=== PATIENT | female | born 1965 | race American Indian/Alaskan Native ===

== ENCOUNTER 2021-04-27 01:45 | Emergency (ER) | payer MEDICAID, OTHER ==
--- NOTE | 2021-04-27 02:07 | EDM.PDOC ---
"<Daniel Loo M - Last Filed: 04/27/21 03:44> ED HPI GENERAL MEDICAL PROBLEM - General Chief Complaint: Neuro Symptoms/Deficits Time Seen by Provider: 04/27/21 01:55 Source of Information: Reports: EMS History Limitations: Reports: Altered Mental Status - History of Present Illness INITIAL COMMENTS - FREE TEXT/NARRATIVE: This 56 yo female patient was brought to the ED by [facility] due to not acting normally. The patient's family reports the patient has been sick for the past 2 weeks and is not vomiting blood and having bloody stools. The patient would respond to painful stimuli and would open her eyes to her name. There were no family members that presented to the ED for any further information. Onset: Unknown/Unsure Duration: Week(s):, Constant, Getting Worse Location: Reports: Other Quality: Reports: Other Severity: Severe Improves with: Reports: None Worsens with: Reports: None Context: Reports: Other - Related Data Allergies Allergy/AdvReac Type Severity Reaction Status Date / Time No Known Allergies Allergy Verified 09/12/15 12:35 Home Meds: Home Meds . [No Known Home Meds] 09/12/15 [History] Past Medical History - Past Surgical History Female Surgical History: Reports: Section, Other (See Below) ED ROS GENERAL - Review of Systems Review Of Systems: Comprehensive ROS is negative, except as noted in HPI. ED EXAM, GENERAL - Physical Exam Exam: See Below Exam Limited By: Altered Mental Status General Appearance: Alert, Moderate Distress Eye Exam: Bilateral Eye: EOMI, Normal Inspection, PERRL Ears: Normal External Exam, Normal Canal, Hearing Grossly Normal, Normal TMs Nose: Normal Inspection, Normal Mucosa, No Blood Throat/Mouth: Other (dark substance (consistant with families reports of the patient vomiting blood).) Head: Atraumatic, Normocephalic Neck: Normal Inspection, Supple, Non-Tender, Full Range of Motion Respiratory/Chest: No Respiratory Distress, Lungs Clear, Normal Breath Sounds, No Accessory Muscle Use, Chest Non-Tender Cardiovascular: Normal Peripheral Pulses, Regular Rate, Rhythm, No Edema, No Gallop, No JVD, No Murmur, No Rub GI/Abdominal: Normal Bowel Sounds, No Organomegaly, No Distention, No Abnormal Bruit, No Mass, Pelvis Stable, Tender, Other (When palpating the patient's abdomen the paitent rolled away with any touch. ) Rectal (Female) Exam: Normal Rectal Tone, Other (The patient was moving away for the rectal examination. The patient had charcoal appearance to stool after rectal exam. ) Back Exam: Normal Inspection, Full Range of Motion, NT Extremities: Normal Inspection, Normal Range of Motion, Non-Tender, Normal Capillary Refill, No Pedal Edema Neurological: Inattentive, Disoriented Skin Exam: Warm, Dry, Intact, No Rash, Pallor Lymphatic: No Adenopathy #1 Interpretation EKG Date: 04/27/21 Time: 02:14 Rhythm: Other (Sinus Tach) Rate (Beats/Min): 102 Perry: Normal P-Wave: Present QRS: Normal ST-T: Normal QT: Normal Comparison: NA - No Prior EKG Course - Re-Assessments/Exams Free Text/Narrative Re-Assessment/Exam: 04/27/21 03:44 Calls were placed to transfer this patient to: [facility] @ 252 placed on waiting list [facility] @ 253 placed on list [facility] @ 256 placed on list [facility] @ 259 no beds available [place] @ 302 no beds [facility] @ 304 no beds [place] @ 339 no capability to take care of this patient [facility] @ [phone] at capacity [place] [facility] @ [phone] no rooms Departure - Departure Disposition: DC/Tfer to [facility] 02 Clinical Impression: Severe anemia, Methamphetamine intoxication GI bleed Qualifiers: GI bleed type/associated pathology: gastrointestinal hemorrhage with hematemesis Qualified Code(s): K92.0 - Hematemesis Altered mental status Qualifiers: Altered mental status type: disorientation Qualified Code(s): R41.0 - Disorientation, unspecified Pneumonia Qualifiers: Pneumonia type: aspiration pneumonia Aspiration pneumonia type: due to vomit Laterality: bilateral Lung location: unspecified part of lung Qualified Code(s): J69.0 - Pneumonitis due to inhalation of food and vomit - Discharge Information Forms: ED Department Discharge, Interfacility Transfer SARAH <Samuel Griffin - Last Filed: 04/27/21 08:58> ED HPI GENERAL MEDICAL PROBLEM - General Source of Information: Reports: Family (sister), Provider (Daniel PINA), RN, RN Notes Reviewed History Limitations: Reports: Altered Mental Status, Uncooperative - History of Present Illness INITIAL COMMENTS - FREE TEXT/NARRATIVE: I assumed care of the pt from Reyna PINA at 0700HRS due to shift change. The pt arrive hereto the ER from her sister's house by [facility] shortly after midnight with altered mental status and GI bleed. The pt has been unable to provide any information or history. The pt's sister has called several times and reports the pt became ill about 2 weeks ago, but the initial symptoms are unclear. Apparently about 3 days ago the pt began have blood and dark bloody emesis, coughing up mucus, and dark blood stool with increasing confusion. Unknown if any fevers. Past medical Hx is unknown. Daniel PINA has been calling looking for a higher level of care to transfer the pt to since 0200HRS. He has called 9 tertiary level hospitals in [facility] and adjacent states only to find no beds available anywhere. Social & Family History - Family History Family Medical History: Unobtainable - Living Situation & Occupation Living situation: Reports: with Family Occupation: Unemployed ED ROS GENERAL - Review of Systems Review Of Systems: Unable To Obtain Reason Not Obtained: altered mental status ED EXAM, GENERAL - Physical Exam Exam: See Below Exam Limited By: Altered Mental Status General Appearance: Alert, Other (Uncooperative, confused, but in no distress) Eye Exam: Bilateral Eye: EOMI, Normal Inspection, PERRL Nose: Normal Inspection, No Blood Throat/Mouth: Other Head: Atraumatic, Normocephalic Neck: Normal Inspection Respiratory/Chest: No Respiratory Distress, Lungs Clear Cardiovascular: Regular Rate, Rhythm, No Edema GI/Abdominal: Normal Bowel Sounds, Soft, Non-Tender, No Distention Extremities: Normal Inspection Neurological: Alert, Confused, Disoriented Skin Exam: Warm, Dry, Intact, No Rash, Pallor. No: Ecchymosis, Jaundice, Petechiae Course - Vital Signs Last Recorded V/S: Last Vital Signs Temp 97.7 F 04/27/21 08:50 Pulse 80 04/27/21 08:50 Resp 18 04/27/21 08:50 BP 80/43 L 04/27/21 08:50 Pulse Ox 100 04/27/21 06:32 - Orders/Labs/Meds Orders: Active Orders 24 hr Category Date Time Status Insert Urinary Catheter [OM.PC] Stat Care 04/27/21 07:12 Ordered Urinary Catheter Assessment [RC] ASDIRECTED Care 04/27/21 07:13 Active CULTURE BLOOD [BC] Stat Lab 04/27/21 02:05 Results CULTURE URINE [RM] Stat Lab 04/27/21 07:43 Received RED BLOOD CELLS LP [BBK] Stat Lab 04/27/21 02:05 Results TYPE AND SCREEN [BBK] Stat Lab 04/27/21 02:05 Results Octreotide [SandoSTATIN] 100 mcg Med 04/27/21 07:15 Active Sodium Chloride 0.9% [Normal Saline] 99 ml IV Q10H Pantoprazole [ProTONIX IV] 40 mg Med 04/27/21 07:00 Active Sodium Chloride 0.9% [Normal Saline] 100 ml IV .CONTINUOS Piperacillin/Tazobactam [Zosyn] 3.375 gm Med 04/27/21 08:53 Ordered Sodium Chloride 0.9% [Normal Saline AdvBag] 100 ml IV ONETIME Sodium Chloride 0.9% [Normal Saline] 1,000 ml Med 04/27/21 07:30 Active IV ASDIRECTED Transfuse Red Blood Cells [COMM] Stat Oth 04/27/21 08:20 Ordered Medication Orders Pantoprazole Sodium 40 mg/ (Sodium Chloride) 100 mls @ 20 mls/hr IV .CONTINUOS LEONARDO Last Admin: 04/27/21 07:25 Dose: 20 mls/hr Documented by: HERNAN Octreotide Acetate 100 mcg/ (Sodium Chloride) 100 mls @ 50 mls/hr IV Q10H LEONARDO Last Admin: 04/27/21 08:28 Dose: 50 mls/hr Documented by: HERNAN Sodium Chloride (Normal Saline) 1,000 mls @ 150 mls/hr IV ASDIRECTED LEONARDO Last Admin: 04/27/21 07:59 Dose: 150 mls/hr Documented by: HERNAN Labs: Laboratory Tests 04/27/21 04/27/21 04/27/21 Range/Units 02:00 02:05 02:05 WBC 11.7 H (5.0-10.0) 10^3/uL RBC 1.55 L (4.2-5.4) 10^6/uL Hgb 5.2 L* D (12.0-16.0) g/dL Hct 16.4 L* (37.0-47.0) % MCV 105.8 H D (80-100) fL MCH 33.5 (27.0-34.0) pg MCHC 31.7 L (33.0-35.0) g/dL Plt Count 190 D (150-450) 10^3/uL Neut % (Auto) 78.4 H (42.2-75.2) % Lymph % (Auto) 14.5 L (20.5-50.1) % Ware % (Auto) 6.5 (2-8) % Eos % (Auto) 0.3 L (1.0-3.0) % Baso % (Auto) 0.3 (0.0-1.0) % Add Manual Diff Yes Neutrophils % (Manual) 70 (42-75) % Band Neutrophils % 17 % Lymphocytes % (Manual) 8 L (20-50) % Atypical Lymphs % 0 % Monocytes % (Manual) 4 (2-8) % Eosinophils % (Manual) 1 (1-3) % Hypochromasia 2+ moderate Anisocytosis 1+ slight PT 14.4 H (9.0-12.0) SEC INR 1.4 H (0.9-1.2) D-Dimer, Quantitative 164 (0-400) ng/mL Sodium (136-145) mmol/L Potassium (3.5-5.1) mmol/L Chloride (98-107) mmol/L Carbon Dioxide (21-32) mmol/L Anion Gap (7-13) mEq/L BUN (7-18) mg/dL Creatinine (0.55-1.02) mg/dL Est Cr Clr Drug Dosing mL/min Estimated GFR (MDRD) BUN/Creatinine Ratio (No establ ref range) Glucose (70-99) mg/dL Lactic Acid (0.4-2.0) mmol/L Calcium (8.5-10.1) mg/dL Magnesium (1.8-2.4) mg/dL Total Bilirubin (0.2-1.0) mg/dL AST (15-37) U/L ALT (14-59) U/L Alkaline Phosphatase (46-116) U/L Ammonia (11-32) umol/L Troponin I High Sens (<=51) pg/mL Total Protein (6.4-8.2) g/dL Albumin (3.4-5.0) g/dL Globulin Albumin/Globulin Ratio Amylase (25-115) U/L Urine Color (YELLOW) Urine Appearance (CLEAR) Urine pH (5.0-9.0) Ur Specific [place] (1.005-1.030) Urine Protein (NEGATIVE) Urine Glucose (UA) (NEGATIVE) Urine Ketones (NEGATIVE) Urine Occult Blood (NEGATIVE) Urine Nitrite (NEGATIVE) Urine Bilirubin (NEGATIVE) Urine Urobilinogen (0.2-1.0) mg/dL Ur Leukocyte Esterase (NEGATIVE) Urine RBC (0-5) /HPF Urine WBC (0-5/HPF) /HPF Ur Epithelial Cells (NOT SEEN) /HPF Amorphous Sediment (NOT SEEN) /HPF Urine Bacteria (0-FEW/HPF) /HPF Urine Mucus (NOT SEEN) /LPF Salicylates (2.8-20(Therapeutic)) mg/dL Urine Opiates Screen (NEGATIVE) Ur Oxycodone Screen (NEGATIVE) Urine Methadone Screen (NEGATIVE) Acetaminophen (10-30 (Therapeutic)) ug/mL Ur Barbiturates Screen (NEGATIVE) U Tricyclic Antidepress (NEGATIVE) Ur Phencyclidine Scrn (NEGATIVE) Ur Amphetamine Screen (NEGATIVE) U Methamphetamines Scrn (NEGATIVE) Urine MDMA Screen (NEGATIVE) U Benzodiazepines Scrn (NEGATIVE) Urine Cocaine Screen (NEGATIVE) U Marijuana (THC) Screen (NEGATIVE) Ethyl Alcohol (0) mg/dL Influenza Type A RNA Negative (NEGATIVE) Influenza Type B RNA Negative (NEGATIVE) SARS-CoV-2 RNA (MA[place]) Negative (NEGATIVE) Blood Type Gel Antibody Screen Crossmatch 04/27/21 04/27/21 04/27/21 Range/Units 02:05 02:05 02:05 WBC (5.0-10.0) 10^3/uL RBC (4.2-5.4) 10^6/uL Hgb (12.0-16.0) g/dL Hct (37.0-47.0) % MCV (80-100) fL MCH (27.0-34.0) pg MCHC (33.0-35.0) g/dL Plt Count (150-450) 10^3/uL Neut % (Auto) (42.2-75.2) % Lymph % (Auto) (20.5-50.1) % Ware % (Auto) (2-8) % Eos % (Auto) (1.0-3.0) % Baso % (Auto) (0.0-1.0) % Add Manual Diff Neutrophils % (Manual) (42-75) % Band Neutrophils % % Lymphocytes % (Manual) (20-50) % Atypical Lymphs % % Monocytes % (Manual) (2-8) % Eosinophils % (Manual) (1-3) % Hypochromasia Anisocytosis PT (9.0-12.0) SEC INR (0.9-1.2) D-Dimer, Quantitative (0-400) ng/mL Sodium 141 (136-145) mmol/L Potassium 4.4 (3.5-5.1) mmol/L Chloride 109 H (98-107) mmol/L Carbon Dioxide 19 L (21-32) mmol/L Anion Gap 17.4 H (7-13) mEq/L BUN 53 H (7-18) mg/dL Creatinine 1.44 H (0.55-1.02) mg/dL Est Cr Clr Drug Dosing 36.94 mL/min Estimated GFR (MDRD) 38 BUN/Creatinine Ratio 36.8 (No establ ref range) Glucose 125 H (70-99) mg/dL Lactic Acid 4.5 H* (0.4-2.0) mmol/L Calcium 7.3 L (8.5-10.1) mg/dL Magnesium 1.7 L (1.8-2.4) mg/dL Total Bilirubin 1.4 H (0.2-1.0) mg/dL AST 71 H (15-37) U/L ALT 30 (14-59) U/L Alkaline Phosphatase 88 (46-116) U/L Ammonia 19 (11-32) umol/L Troponin I High Sens 8 (<=51) pg/mL Total Protein 5.3 L (6.4-8.2) g/dL Albumin 1.7 L (3.4-5.0) g/dL Globulin 3.6 Albumin/Globulin Ratio 0.47 Amylase 62 (25-115) U/L Urine Color (YELLOW) Urine Appearance (CLEAR) Urine pH (5.0-9.0) Ur Specific [place] (1.005-1.030) Urine Protein (NEGATIVE) Urine Glucose (UA) (NEGATIVE) Urine Ketones (NEGATIVE) Urine Occult Blood (NEGATIVE) Urine Nitrite (NEGATIVE) Urine Bilirubin (NEGATIVE) Urine Urobilinogen (0.2-1.0) mg/dL Ur Leukocyte Esterase (NEGATIVE) Urine RBC (0-5) /HPF Urine WBC (0-5/HPF) /HPF Ur Epithelial Cells (NOT SEEN) /HPF Amorphous Sediment (NOT SEEN) /HPF Urine Bacteria (0-FEW/HPF) /HPF Urine Mucus (NOT SEEN) /LPF Salicylates (2.8-20(Therapeutic)) mg/dL Urine Opiates Screen (NEGATIVE) Ur Oxycodone Screen (NEGATIVE) Urine Methadone Screen (NEGATIVE) Acetaminophen 3 L (10-30 (Therapeutic)) ug/mL Ur Barbiturates Screen (NEGATIVE) U Tricyclic Antidepress (NEGATIVE) Ur Phencyclidine Scrn (NEGATIVE) Ur Amphetamine Screen (NEGATIVE) U Methamphetamines Scrn (NEGATIVE) Urine MDMA Screen (NEGATIVE) U Benzodiazepines Scrn (NEGATIVE) Urine Cocaine Screen (NEGATIVE) U Marijuana (THC) Screen (NEGATIVE) Ethyl Alcohol < 3 (0) mg/dL Influenza Type A RNA (NEGATIVE) Influenza Type B RNA (NEGATIVE) SARS-CoV-2 RNA ([place]) (NEGATIVE) Blood Type Gel Antibody Screen Crossmatch 04/27/21 04/27/21 04/27/21 Range/Units 02:05 02:05 05:25 WBC (5.0-10.0) 10^3/uL RBC (4.2-5.4) 10^6/uL Hgb (12.0-16.0) g/dL Hct (37.0-47.0) % MCV (80-100) fL MCH (27.0-34.0) pg MCHC (33.0-35.0) g/dL Plt Count (150-450) 10^3/uL Neut % (Auto) (42.2-75.2) % Lymph % (Auto) (20.5-50.1) % Ware % (Auto) (2-8) % Eos % (Auto) (1.0-3.0) % Baso % (Auto) (0.0-1.0) % Add Manual Diff Neutrophils % (Manual) (42-75) % Band Neutrophils % % Lymphocytes % (Manual) (20-50) % Atypical Lymphs % % Monocytes % (Manual) (2-8) % Eosinophils % (Manual) (1-3) % Hypochromasia Anisocytosis PT (9.0-12.0) SEC INR (0.9-1.2) D-Dimer, Quantitative (0-400) ng/mL Sodium (136-145) mmol/L Potassium (3.5-5.1) mmol/L Chloride (98-107) mmol/L Carbon Dioxide (21-32) mmol/L Anion Gap (7-13) mEq/L BUN (7-18) mg/dL Creatinine (0.55-1.02) mg/dL Est Cr Clr Drug Dosing mL/min Estimated GFR (MDRD) BUN/Creatinine Ratio (No establ ref range) Glucose (70-99) mg/dL Lactic Acid 2.7 H* (0.4-2.0) mmol/L Calcium (8.5-10.1) mg/dL Magnesium (1.8-2.4) mg/dL Total Bilirubin (0.2-1.0) mg/dL AST (15-37) U/L ALT (14-59) U/L Alkaline Phosphatase (46-116) U/L Ammonia (11-32) umol/L Troponin I High Sens (<=51) pg/mL Total Protein (6.4-8.2) g/dL Albumin (3.4-5.0) g/dL Globulin Albumin/Globulin Ratio Amylase (25-115) U/L Urine Color (YELLOW) Urine Appearance (CLEAR) Urine pH (5.0-9.0) Ur Specific [place] (1.005-1.030) Urine Protein (NEGATIVE) Urine Glucose (UA) (NEGATIVE) Urine Ketones (NEGATIVE) Urine Occult Blood (NEGATIVE) Urine Nitrite (NEGATIVE) Urine Bilirubin (NEGATIVE) Urine Urobilinogen (0.2-1.0) mg/dL Ur Leukocyte Esterase (NEGATIVE) Urine RBC (0-5) /HPF Urine WBC (0-5/HPF) /HPF Ur Epithelial Cells (NOT SEEN) /HPF Amorphous Sediment (NOT SEEN) /HPF Urine Bacteria (0-FEW/HPF) /HPF Urine Mucus (NOT SEEN) /LPF Salicylates < 2.8 L (2.8-20(Therapeutic)) mg/dL Urine Opiates Screen (NEGATIVE) Ur Oxycodone Screen (NEGATIVE) Urine Methadone Screen (NEGATIVE) Acetaminophen (10-30 (Therapeutic)) ug/mL Ur Barbiturates Screen (NEGATIVE) U Tricyclic Antidepress (NEGATIVE) Ur Phencyclidine Scrn (NEGATIVE) Ur Amphetamine Screen (NEGATIVE) U Methamphetamines Scrn (NEGATIVE) Urine MDMA Screen (NEGATIVE) U Benzodiazepines Scrn (NEGATIVE) Urine Cocaine Screen (NEGATIVE) U Marijuana (THC) Screen (NEGATIVE) Ethyl Alcohol (0) mg/dL Influenza Type A RNA (NEGATIVE) Influenza Type B RNA (NEGATIVE) SARS-CoV-2 RNA ([place]) (NEGATIVE) Blood Type O POSITIVE Gel Antibody Screen Negative Crossmatch See Detail 04/27/21 04/27/21 04/27/21 Range/Units 06:30 06:30 07:43 WBC 9.8 (5.0-10.0) 10^3/uL RBC 2.53 L (4.2-5.4) 10^6/uL Hgb 7.8 L D (12.0-16.0) g/dL Hct 24.1 L (37.0-47.0) % MCV 95.3 D (80-100) fL MCH 30.8 (27.0-34.0) pg MCHC 32.4 L (33.0-35.0) g/dL Plt Count 128 L (150-450) 10^3/uL Neut % (Auto) 73.0 (42.2-75.2) % Lymph % (Auto) 17.4 L (20.5-50.1) % Ware % (Auto) 8.9 H (2-8) % Eos % (Auto) 0.4 L (1.0-3.0) % Baso % (Auto) 0.3 (0.0-1.0) % Add Manual Diff Neutrophils % (Manual) (42-75) % Band Neutrophils % % Lymphocytes % (Manual) (20-50) % Atypical Lymphs % % Monocytes % (Manual) (2-8) % Eosinophils % (Manual) (1-3) % Hypochromasia Anisocytosis PT (9.0-12.0) SEC INR (0.9-1.2) D-Dimer, Quantitative (0-400) ng/mL Sodium 141 (136-145) mmol/L Potassium 4.4 (3.5-5.1) mmol/L Chloride 109 H (98-107) mmol/L Carbon Dioxide 19 L (21-32) mmol/L Anion Gap 17.4 H (7-13) mEq/L BUN 49 H (7-18) mg/dL Creatinine 1.18 H (0.55-1.02) mg/dL Est Cr Clr Drug Dosing 45.08 mL/min Estimated GFR (MDRD) 48 BUN/Creatinine Ratio 41.5 (No establ ref range) Glucose 116 H (70-99) mg/dL Lactic Acid (0.4-2.0) mmol/L Calcium 7.2 L (8.5-10.1) mg/dL Magnesium (1.8-2.4) mg/dL Total Bilirubin 1.6 H (0.2-1.0) mg/dL AST 78 H (15-37) U/L ALT 27 (14-59) U/L Alkaline Phosphatase 91 (46-116) U/L Ammonia (11-32) umol/L Troponin I High Sens (<=51) pg/mL Total Protein 5.6 L (6.4-8.2) g/dL Albumin 1.8 L (3.4-5.0) g/dL Globulin 3.8 Albumin/Globulin Ratio 0.47 Amylase (25-115) U/L Urine Color Yellow (YELLOW) Urine Appearance Slightly cloudy (CLEAR) Urine pH 6.0 (5.0-9.0) Ur Specific [place] 1.025 (1.005-1.030) Urine Protein Negative (NEGATIVE) Urine Glucose (UA) Negative (NEGATIVE) Urine Ketones Negative (NEGATIVE) Urine Occult Blood Trace-intact H (NEGATIVE) Urine Nitrite Positive H (NEGATIVE) Urine Bilirubin Negative (NEGATIVE) Urine Urobilinogen 1.0 (0.2-1.0) mg/dL Ur Leukocyte Esterase Negative (NEGATIVE) Urine RBC 0-5 (0-5) /HPF Urine WBC 0-5 (0-5/HPF) /HPF Ur Epithelial Cells Few (NOT SEEN) /HPF Amorphous Sediment Rare (NOT SEEN) /HPF Urine Bacteria Many H (0-FEW/HPF) /HPF Urine Mucus Few H (NOT SEEN) /LPF Salicylates (2.8-20(Therapeutic)) mg/dL Urine Opiates Screen (NEGATIVE) Ur Oxycodone Screen (NEGATIVE) Urine Methadone Screen (NEGATIVE) Acetaminophen (10-30 (Therapeutic)) ug/mL Ur Barbiturates Screen (NEGATIVE) U Tricyclic Antidepress (NEGATIVE) Ur Phencyclidine Scrn (NEGATIVE) Ur Amphetamine Screen (NEGATIVE) U Methamphetamines Scrn (NEGATIVE) Urine MDMA Screen (NEGATIVE) U Benzodiazepines Scrn (NEGATIVE) Urine Cocaine Screen (NEGATIVE) U Marijuana (THC) Screen (NEGATIVE) Ethyl Alcohol (0) mg/dL Influenza Type A RNA (NEGATIVE) Influenza Type B RNA (NEGATIVE) SARS-CoV-2 RNA ([place]) (NEGATIVE) Blood Type Gel Antibody Screen Crossmatch 04/27/21 Range/Units 07:43 WBC (5.0-10.0) 10^3/uL RBC (4.2-5.4) 10^6/uL Hgb (12.0-16.0) g/dL Hct (37.0-47.0) % MCV (80-100) fL MCH (27.0-34.0) pg MCHC (33.0-35.0) g/dL Plt Count (150-450) 10^3/uL Neut % (Auto) (42.2-75.2) % Lymph % (Auto) (20.5-50.1) % Ware % (Auto) (2-8) % Eos % (Auto) (1.0-3.0) % Baso % (Auto) (0.0-1.0) % Add Manual Diff Neutrophils % (Manual) (42-75) % Band Neutrophils % % Lymphocytes % (Manual) (20-50) % Atypical Lymphs % % Monocytes % (Manual) (2-8) % Eosinophils % (Manual) (1-3) % Hypochromasia Anisocytosis PT (9.0-12.0) SEC INR (0.9-1.2) D-Dimer, Quantitative (0-400) ng/mL Sodium (136-145) mmol/L Potassium (3.5-5.1) mmol/L Chloride (98-107) mmol/L Carbon Dioxide (21-32) mmol/L Anion Gap (7-13) mEq/L BUN (7-18) mg/dL Creatinine (0.55-1.02) mg/dL Est Cr Clr Drug Dosing mL/min Estimated GFR (MDRD) BUN/Creatinine Ratio (No establ ref range) Glucose (70-99) mg/dL Lactic Acid (0.4-2.0) mmol/L Calcium (8.5-10.1) mg/dL Magnesium (1.8-2.4) mg/dL Total Bilirubin (0.2-1.0) mg/dL AST (15-37) U/L ALT (14-59) U/L Alkaline Phosphatase (46-116) U/L Ammonia (11-32) umol/L Troponin I High Sens (<=51) pg/mL Total Protein (6.4-8.2) g/dL Albumin (3.4-5.0) g/dL Globulin Albumin/Globulin Ratio Amylase (25-115) U/L Urine Color (YELLOW) Urine Appearance (CLEAR) Urine pH (5.0-9.0) Ur Specific [place] (1.005-1.030) Urine Protein (NEGATIVE) Urine Glucose (UA) (NEGATIVE) Urine Ketones (NEGATIVE) Urine Occult Blood (NEGATIVE) Urine Nitrite (NEGATIVE) Urine Bilirubin (NEGATIVE) Urine Urobilinogen (0.2-1.0) mg/dL Ur Leukocyte Esterase (NEGATIVE) Urine RBC (0-5) /HPF Urine WBC (0-5/HPF) /HPF Ur Epithelial Cells (NOT SEEN) /HPF Amorphous Sediment (NOT SEEN) /HPF Urine Bacteria (0-FEW/HPF) /HPF Urine Mucus (NOT SEEN) /LPF Salicylates (2.8-20(Therapeutic)) mg/dL Urine Opiates Screen Negative (NEGATIVE) Ur Oxycodone Screen Negative (NEGATIVE) Urine Methadone Screen Negative (NEGATIVE) Acetaminophen (10-30 (Therapeutic)) ug/mL Ur Barbiturates Screen Negative (NEGATIVE) U Tricyclic Antidepress Negative (NEGATIVE) Ur Phencyclidine Scrn Negative (NEGATIVE) Ur Amphetamine Screen Positive H (NEGATIVE) U Methamphetamines Scrn Positive H (NEGATIVE) Urine MDMA Screen Negative (NEGATIVE) U Benzodiazepines Scrn Negative (NEGATIVE) Urine Cocaine Screen Negative (NEGATIVE) U Marijuana (THC) Screen Negative (NEGATIVE) Ethyl Alcohol (0) mg/dL Influenza Type A RNA (NEGATIVE) Influenza Type B RNA (NEGATIVE) SARS-CoV-2 RNA ([place]) (NEGATIVE) Blood Type Gel Antibody Screen Crossmatch Meds: Medications Generic Name Dose Route Start Last Admin Trade Name Freq PRN Reason Stop Dose Admin Pantoprazole Sodium 40 mg/ 100 mls @ 20 mls/hr 04/27/21 07:00 04/27/21 07:25 Sodium Chloride IV 20 mls/hr .CONTINUOS LEONARDO Administration Octreotide Acetate 100 mcg/ 100 mls @ 50 mls/hr 04/27/21 07:15 04/27/21 08:28 Sodium Chloride IV 50 mls/hr Q10H LEONARDO Administration Sodium Chloride 1,000 mls @ 150 mls/hr 04/27/21 07:30 04/27/21 07:59 Normal Saline IV 150 mls/hr ASDIRECTED LEONARDO Administration Discontinued Medications Generic Name Dose Route Start Last Admin Trade Name Freq PRN Reason Stop Dose Admin Sodium Chloride 1,000 mls @ 500 mls/hr 04/27/21 03:47 04/27/21 03:50 Normal Saline IV 04/27/21 05:46 500 mls/hr .BOLUS ONE Administration Midazolam HCl 2 mg 04/27/21 07:11 04/27/21 07:33 Midazolam 1 Mg/Ml 2 Ml Sdv IVPUSH 04/27/21 07:12 2 mg ONETIME ONE Administration Midazolam HCl 2 mg 04/27/21 07:21 04/27/21 07:48 Midazolam 1 Mg/Ml 2 Ml Sdv IVPUSH 04/27/21 07:22 2 mg ONETIME ONE Administration Octreotide Acetate 50 mcg 04/27/21 07:15 04/27/21 08:28 Octreotide 100 Mcg/Ml Sdv IVPUSH 04/27/21 07:16 50 mcg ONETIME ONE Administration Ondansetron HCl 4 mg 04/27/21 07:17 04/27/21 07:54 Ondansetron 4 Mg/2 Ml Sdv IV 04/27/21 07:18 4 mg ONETIME ONE Administration Pantoprazole Sodium 40 mg 04/27/21 02:33 04/27/21 02:39 Pantoprazole 40 Mg Vial IVPUSH 04/27/21 02:34 40 mg ONETIME ONE Administration - Radiology Interpretation Free Text/Narrative:: [facility] Final Radiology Report Call: [phone] assistance Online chat: [email or web address] Name: PATI NATION Age: 56Years F Date: 04/27/2021 SSN: -- : [id number] Study: CT HEAD WO CONT Requesting Physician: SAMUEL GRIFFIN Images: 146 Addl Studies: Provided Clinical History: Alt. mental status Contrast: Without Contrast Medium: Contrast Amount: Contrast Method: Page 1 of 2 PROCEDURE INFORMATION: Exam: CT Head Without Contrast Exam date and time: 04/27/2021 7:59 AM Age: 56 years old Clinical indication: Altered mental status/memory loss; Additional info: Alt. Mental status TECHNIQUE: Imaging protocol: Computed tomography of the head without contrast. Radiation optimization: All CT scans at this facility use at least one of these dose optimization techniques: automated exposure control; mA and/or kV adjustment per patient size (includes targeted exams where dose is matched to clinical indication); or iterative r econstruction. COMPARISON: CT Head wo Cont 09/12/2015 12:51 PM FINDINGS: Brain: Normal. No hemorrhage. Unremarkable white matter. No mass effect. Ventricles: Normal. No hydrocephalus or evidence of increased intracranial pressure. Paranasal sinuses: Minimal bilateral maxillary sinus mucosal thickening. Mild left sphenoid sinus dependent spumescent debris. Mastoid air cells: Visualized mastoid air cells are well aerated. Bones/joints: No acute abnormality. No acute fracture. Soft tissues: Unremarkable. IMPRESSION: 1. No acute intracranial abnormality identified. 2. Incidental paranasal sinus disease as above. Thank you for allowing us to participate in the care of your patient. [facility] | Final Radiology Report CONFIDENTIALITY STATEMENT This report is intended only for use by the referring physician, and only in accordance with law. If you received this in error, call [phone]. Page 2 of 2 Dictated and Authenticated by: Dashawn Roberts MD 04/27/2021 8:22 AM Central Time ([place] & [place]) [facility] Final Radiology Report Call: [phone] assistance Online chat: [email or web address] Name: [facility] Age: 56Years F Date: 04/27/2021 SSN: -- : [id number] Study: CT CHEST ABDOMEN PELVIS WO CONT Requesting Physician: SAMUEL GIRFFIN Images: [id number] Addl Studies: [id number] - CT CHEST WO (1) Provided Clinical History: GI bleed, poss. aspiration, Alt. mental status Contrast: Without Contrast Medium: Contrast Amount: Contrast Method: Page 1 of 3 PROCEDURE INFORMATION: Exam: CT Chest Without Contrast; Diagnostic Exam date and time: 04/27/2021 7:59 AM Age: 56 years old Clinical indication: Condition or disease; Gi device placement or management; Other: Gi bleed, aspiration; Additional info: Gi bleed, poss. Aspiration, alt. Mental status TECHNIQUE: Imaging protocol: Diagnostic computed tomography of the chest without contrast. Radiation optimization: All CT scans at this facility use at least one of these dose optimization techniques: automated exposure control; mA and/or kV adjustment per patient size (includes targeted exams where dose is matched to clinical indication); or iterative reconstruction. COMPARISON: CT Chest wo Cont 09/12/2015 12:51 PM FINDINGS: Thyroid: The bilateral thyroid lobes are unremarkable. Lungs: Bibasilar, right middle lobe medial segment, lingular, mild bilateral anterior segment upper lobe pulmonary subsegmental atelectasis. Pleural spaces: No pneumothorax. No pleural effusion. Heart: No cardiomegaly. No pericardial effusion. Aorta: Unremarkable. No aortic aneurysm. Lymph nodes: No enlarged lymph nodes. Bones/joints: No acute abnormality. No acute fracture. Soft tissues: Unremarkable. Other findings: Streak artifact is present from the patient's arms at the side. Blood in the cardiac ventricles is hypoattenuating relative to the myocardium suggesting anemia. [facility] | Final Radiology Report Page 2 of 3 IMPRESSION: 1. Possible anemia, see above comments. Correlation with CBC may be helpful. Otherwise, no acute abnormality identified. 2. Please see the abdomen/pelvis CT report of the same date for additional findings. PROCEDURE INFORMATION: Exam: CT Abdomen And Pelvis Without Contrast Exam date and time: 04/27/2021 7:59 AM Age: 56 years old Clinical indication: Condition or disease; Gi device placement or management; Other: Gi bleed, aspiration; Additional info: Gi bleed, poss. Aspiration, alt. Mental status TECHNIQUE: Imaging protocol: Computed tomography of the abdomen and pelvis without contrast. Radiation optimization: All CT scans at this facility use at least one of these dose optimization techniques: automated exposure control; mA and/or kV adjustment per patient size (includes targeted exams where dose is matched to clinical indication); or iterative reconstruction. COMPARISON: CT Chest wo Cont 09/12/2015 12:51 PM FINDINGS: Liver: Mildly nodular contour to the liver and hypertrophy of the left lobe lateral segment, consistent with hepatic cirrhosis. Small recanalized paraumbilical vein. Gallbladder and bile ducts: The gallbladder is surgically absent, with metallic clips in the gallbladder fossa. No extrahepatic biliary ductal dilatation or calculus. Pancreas: Normal. No ductal dilation. Spleen: Normal. No splenomegaly. Adrenal glands: Normal. No mass. Kidneys and ureters: Normal. No hydronephrosis. Stomach and bowel: No sentinel intraluminal clot identified. Mild ascending colonic wall thickening. Appendix: The vermiform appendix is normal. Intraperitoneal space: No free air. No significant fluid collection. Vasculature: Right pelvic calcified phlebolith. Lymph nodes: No enlarged lymph nodes. Urinary bladder: The urinary bladder is drained by a [place] catheter. Reproductive: Unremarkable as visualized. Bones/joints: L4-L5 degenerative disc disease with mild spondylosis. Soft tissues: Unremarkable. Other findings: Streak artifact is present from the patient's arms at the side. IMPRESSION: 1. Hepatic cirrhosis. [facility] | Final Radiology Report CONFIDENTIALITY STATEMENT This report is intended only for use by the referring physician, and only in accordance with law. If you received this in error, call [phone]. Page 3 of 3 2. Mild ascending colonic wall thickening. The finding is consistent with mild nonspecific colitis. Clinical correlation with the patient's specific symptomatology is recommended. Consider hepatic enteropathy. 3. Prior cholecystectomy. 4. Please see the CT chest report of the same date for additional findings. Thank you for allowing us to participate in the care of your patient. Dictated and Authenticated by: Dashawn Roberts MD 04/27/2021 8:33 AM Central Time ([place] & [place]) Departure - Departure Time of Disposition: 08:10 (transfer to Dr. Sylvain Rockwell @ [facility]) Condition: Serious, Critical - Discharge Information *PRESCRIPTION DRUG MONITORING PROGRAM REVIEWED*: No *COPY OF PRESCRIPTION DRUG MONITORING REPORT IN PATIENT JEROME: No Sepsis Event Note (ED) - Focused Exam Vital Signs: Vital Signs Temp Temp Pulse Resp BP Pulse Ox 04/27/21 08:50 97.7 F 80 18 80/43 L 04/27/21 06:32 97.4 F 86 16 114/62 100 04/27/21 06:24 97.3 F 96 15 91/60 100 04/27/21 06:01 98/51 L 04/27/21 05:46 97.7 F 91 24 H 72/60 L 100 04/27/21 05:25 97.4 F 95 16 85/56 L 100 04/27/21 05:10 97.5 F 88 18 88/39 L 100 04/27/21 04:50 97.5 F 95 16 98/38 L 100 04/27/21 04:40 97.6 F 84 17 104/60 100 04/27/21 04:26 97.3 F 92 17 91/50 L 100 04/27/21 03:51 97 F 86 17 83/47 L 100 04/27/21 03:37 97 F 90 18 85/46 L 100 04/27/21 03:22 96.9 F 92 18 95/52 L 100 04/27/21 03:07 97.1 F 99 12 100/41 L 04/27/21 01:53 97.5 F 102 H 15 100/59 L 100 - My Orders Last 24 Hours: My Active Orders 04/27/21 07:12 Insert Urinary Catheter [OM.PC] Stat 04/27/21 07:13 Urinary Catheter Assessment [RC] ASDIRECTED 04/27/21 07:15 Octreotide [SandoSTATIN] 100 mcg Sodium Chloride 0.9% [Normal Saline] 99 ml IV Q10H 04/27/21 07:30 Sodium Chloride 0.9% [Normal Saline] 1,000 ml IV ASDIRECTED 04/27/21 08:20 Transfuse Red Blood Cells [COMM] Stat 04/27/21 08:53 Piperacillin/Tazobactam [Zosyn] 3.375 gm Sodium Chloride 0.9% [Normal Saline AdvBag] 100 ml IV ONETIME - Assessment/Plan Last 24 Hours: My Active Orders 04/27/21 07:12 Insert Urinary Catheter [OM.PC] Stat 04/27/21 07:13 Urinary Catheter Assessment [RC] ASDIRECTED 04/27/21 07:15 Octreotide [SandoSTATIN] 100 mcg Sodium Chloride 0.9% [Normal Saline] 99 ml IV Q10H 04/27/21 07:30 Sodium Chloride 0.9% [Normal Saline] 1,000 ml IV ASDIRECTED 04/27/21 08:20 Transfuse Red Blood Cells [COMM] Stat 04/27/21 08:53 Piperacillin/Tazobactam [Zosyn] 3.375 gm Sodium Chloride 0.9% [Normal Saline AdvBag] 100 ml IV ONETIME"
[2021-04-27] MEDS: Pantoprazole 40 MG Vial IVPUSH ONE (02:39)
[2021-04-27 02:44] LABS: ACETAMINOPHEN 3 ug/mL (10-30 (Therapeutic)); ANION GAP 17.4 mEq/L (7-13); CHLORIDE,CL 109 mmol/L (98-107); SODIUM,NA 141 mmol/L (136-145)
[2021-04-27] MEDS: Sodium Chloride 0.9% 1,000 ML IV ONE (03:50)
[2021-04-27 05:34] LABS: CORONAVIRUS COVID-19 NAA NEGATIVE (NEGATIVE)
[2021-04-27 07:00] LABS: ANION GAP 17.4 mEq/L (7-13)
[2021-04-27] MEDS: Pantoprazole 40 MG in Sodium Chloride 0.9% 100 ML IV SCH (07:25)
[2021-04-27] MEDS: Midazolam 1 MG/ML 2 ML SDV IVPUSH ONE ×2 (07:33→07:48)
[2021-04-27] MEDS: Ondansetron 4 MG/2 ML SDV IV ONE (07:54)
[2021-04-27 07:56] LABS: AMPHETAMINES,URINE POSITIVE (NEGATIVE); BARBITURATES,URINE NEGATIVE (NEGATIVE); BENZODIAZEPINE,URINE NEGATIVE (NEGATIVE); MDMA (ECSTASY), URINE NEGATIVE (NEGATIVE); METHADONE,URINE NEGATIVE (NEGATIVE); METHAMPHETAMINES,URINE POSITIVE (NEGATIVE); OPIATES,URINE NEGATIVE (NEGATIVE); OXYCODONE,URINE NEGATIVE (NEGATIVE); PHENCYCLIDINE,URINE NEGATIVE (NEGATIVE); TCA,URINE NEGATIVE (NEGATIVE)
[2021-04-27] MEDS: Sodium Chloride 0.9% 1,000 ML IV SCH (07:59)
--- NOTE | 2021-04-27 08:22 | CT ---
PROCEDURE INFORMATION: Exam: CT Head Without Contrast Exam date and time: 04/27/2021 7:59 AM Age: 56 years old Clinical indication: Altered mental status/memory loss; Additional info: Alt. Mental status TECHNIQUE: Imaging protocol: Computed tomography of the head without contrast. Radiation optimization: All CT scans at this facility use at least one of these dose optimization techniques: automated exposure control; mA and/or kV adjustment per patient size (includes targeted exams where dose is matched to clinical indication); or iterative reconstruction. COMPARISON: CT Head wo Cont 09/12/2015 12:51 PM FINDINGS: Brain: Normal. No hemorrhage. Unremarkable white matter. No mass effect. Ventricles: Normal. No hydrocephalus or evidence of increased intracranial pressure. Paranasal sinuses: Minimal bilateral maxillary sinus mucosal thickening. Mild left sphenoid sinus dependent spumescent debris. Mastoid air cells: Visualized mastoid air cells are well aerated. Bones/joints: No acute abnormality. No acute fracture. Soft tissues: Unremarkable. IMPRESSION: 1. No acute intracranial abnormality identified. 2. Incidental paranasal sinus disease as above.
[2021-04-27] MEDS: Octreotide 100 MCG in Sodium Chloride 0.9% 99 ML IV SCH (08:28)
[2021-04-27] MEDS: Octreotide 100 MCG/ML SDV IVPUSH ONE (08:28)
--- NOTE | 2021-04-27 08:33 | CT ---
PROCEDURE INFORMATION: Exam: CT Chest Without Contrast; Diagnostic Exam date and time: 04/27/2021 7:59 AM Age: 56 years old Clinical indication: Condition or disease; Gi device placement or management; Other: Gi bleed, aspiration; Additional info: Gi bleed, poss. Aspiration, alt. Mental status TECHNIQUE: Imaging protocol: Diagnostic computed tomography of the chest without contrast. Radiation optimization: All CT scans at this facility use at least one of these dose optimization techniques: automated exposure control; mA and/or kV adjustment per patient size (includes targeted exams where dose is matched to clinical indication); or iterative reconstruction. COMPARISON: CT Chest wo Cont 09/12/2015 12:51 PM FINDINGS: Thyroid: The bilateral thyroid lobes are unremarkable. Lungs: Bibasilar, right middle lobe medial segment, lingular, mild bilateral anterior segment upper lobe pulmonary subsegmental atelectasis. Pleural spaces: No pneumothorax. No pleural effusion. Heart: No cardiomegaly. No pericardial effusion. Aorta: Unremarkable. No aortic aneurysm. Lymph nodes: No enlarged lymph nodes. Bones/joints: No acute abnormality. No acute fracture. Soft tissues: Unremarkable. Other findings: Streak artifact is present from the patient's arms at the side. Blood in the cardiac ventricles is hypoattenuating relative to the myocardium suggesting anemia. IMPRESSION: 1. Possible anemia, see above comments. Correlation with CBC may be helpful. Otherwise, no acute abnormality identified. 2. Please see the abdomen/pelvis CT report of the same date for additional findings. PROCEDURE INFORMATION: Exam: CT Abdomen And Pelvis Without Contrast Exam date and time: 04/27/2021 7:59 AM Age: 56 years old Clinical indication: Condition or disease; Gi device placement or management; Other: Gi bleed, aspiration; Additional info: Gi bleed, poss. Aspiration, alt. Mental status TECHNIQUE: Imaging protocol: Computed tomography of the abdomen and pelvis without contrast. Radiation optimization: All CT scans at this facility use at least one of these dose optimization techniques: automated exposure control; mA and/or kV adjustment per patient size (includes targeted exams where dose is matched to clinical indication); or iterative reconstruction. COMPARISON: CT Chest wo Cont 09/12/2015 12:51 PM FINDINGS: Liver: Mildly nodular contour to the liver and hypertrophy of the left lobe lateral segment, consistent with hepatic cirrhosis. Small recanalized paraumbilical vein. Gallbladder and bile ducts: The gallbladder is surgically absent, with metallic clips in the gallbladder fossa. No extrahepatic biliary ductal dilatation or calculus. Pancreas: Normal. No ductal dilation. Spleen: Normal. No splenomegaly. Adrenal glands: Normal. No mass. Kidneys and ureters: Normal. No hydronephrosis. Stomach and bowel: No sentinel intraluminal clot identified. Mild ascending colonic wall thickening. Appendix: The vermiform appendix is normal. Intraperitoneal space: No free air. No significant fluid collection. Vasculature: Right pelvic calcified phlebolith. Lymph nodes: No enlarged lymph nodes. Urinary bladder: The urinary bladder is drained by a [place] catheter. Reproductive: Unremarkable as visualized. Bones/joints: L4-L5 degenerative disc disease with mild spondylosis. Soft tissues: Unremarkable. Other findings: Streak artifact is present from the patient's arms at the side. IMPRESSION: 1. Hepatic cirrhosis. 2. Mild ascending colonic wall thickening. The finding is consistent with mild nonspecific colitis. Clinical correlation with the patient's specific symptomatology is recommended. Consider hepatic enteropathy. 3. Prior cholecystectomy. 4. Please see the CT chest report of the same date for additional findings.
[2021-04-27 08:52] VITALS: BP 80/43; PULSE 80
[2021-04-27] MEDS: Piperacillin/Tazobactam 3.375 GM in Sodium Chloride 0.9% 100 ML IV ONE (09:10)
== END 2021-04-27 09:15 ==
LOC: DL.ED 01:45
DX: K92.0 Hematemesis (principal); J69.0 Pneumonitis due to inhalation of food and vomit; R41.0 Disorientation, unspecified; D64.9 Anemia, unspecified; F15.120 Other stimulant abuse with intoxication, uncomplicated; Z20.822 Contact with and (suspected) exposure to COVID-19
CPT/HCPCS: 0240U; 36415; 36430; 51702; 70450; 71250; 74176; 80053; 80143; 80179; 80305; 80307; 81001; 82140; 82150; 82272; 83605; 83735; 84484; 85025; 85379; 85610; 86850; 86900; 86901; 86920; 86922; 87040; 87086; 87088; 87186; 93005; 96365; 96366; 96368; 96375; 96376; 99285; C9113; J2250; J2354; J2405; J2543; J7030; P9016

== ENCOUNTER 2021-10-08 13:43 | Emergency (ER) | payer SELFPAY ==
[2021-10-08] MEDS ORDERED: Sodium Chloride 0.9% 10 ML Syringe FLUSH PRN (14:51)
[2021-10-08 15:34] LABS: ANION GAP 9.5 mEq/L (7-13)
[2021-10-08] MEDS ORDERED: Iopamidol 612 MG/ML 100 ML Bottle IVPUSH ONE (16:29)
[2021-10-08] MEDS ORDERED: Pantoprazole 40 MG Tab.CR PO ONE (18:25)
[2021-10-08] MEDS ORDERED: Pantoprazole 40 MG Vial IVPUSH ONE (18:28)
[2021-10-08] MEDS ORDERED: Ondansetron 4 MG/2 ML SDV IVPUSH ONE (18:28)
[2021-10-08 19:17] VITALS: BP 124/72; PULSE 76
== END 2021-10-08 19:47 | disposition home or self-care (01) ==
LOC: DL.ED 13:43
DX: K74.60 Unspecified cirrhosis of liver (principal); K29.00 Acute gastritis without bleeding; I50.9 Heart failure, unspecified
CPT/HCPCS: 36415; 71046; 74177; 80053; 80307; 82150; 83690; 83880; 84484; 85025; 93005; 96374; 96375; 99285; C9113; J2405; J3490; Q9967; 93010; 99284

== ENCOUNTER 2021-10-18 10:08 | Emergency (ER) | payer SELFPAY ==
[2021-10-18] MEDS ORDERED: Levofloxacin 500 MG Tab PO ONE (10:09)
[2021-10-18 10:17] VITALS: BP 114/71; PULSE 87
[2021-10-18] MEDS ORDERED: Sodium Chloride 0.9% 10 ML Syringe FLUSH PRN (10:26)
[2021-10-18] MEDS ORDERED: Sodium Chloride 0.9% 1,000 ML IV ONE ×2 (11:03→14:01)
[2021-10-18 11:19] LABS: CHLORIDE,CL 98 mmol/L (98-107); SODIUM,NA 129 mmol/L (136-145)
[2021-10-18 11:25] LABS: ESTIMATED GFR 69 mL/min (>=60)
[2021-10-18] MEDS ORDERED: Iopamidol 612 MG/ML 100 ML Bottle IVPUSH ONE (11:44)
[2021-10-18 13:28] LABS: AMPHETAMINES,URINE NEGATIVE (NEGATIVE); BARBITURATES,URINE NEGATIVE (NEGATIVE); BENZODIAZEPINE,URINE NEGATIVE (NEGATIVE); MDMA (ECSTASY), URINE NEGATIVE (NEGATIVE); METHADONE,URINE NEGATIVE (NEGATIVE); METHAMPHETAMINES,URINE POSITIVE (NEGATIVE); OPIATES,URINE NEGATIVE (NEGATIVE); OXYCODONE,URINE NEGATIVE (NEGATIVE); PHENCYCLIDINE,URINE NEGATIVE (NEGATIVE); TCA,URINE NEGATIVE (NEGATIVE)
[2021-10-18] MEDS ORDERED: cefTRIAXone 2 GM in Sodium Chloride 0.9% 100 ML IV ONE (13:39)
[2021-10-18] MEDS ORDERED: Gentamicin 0.3% Ophth Soln 5 ML Bottle EYEBOTH SCH (14:00)
[2021-10-18] MEDS ORDERED: Cephalexin 500 MG Cap ONE (14:05)
[2021-10-18] MEDS ORDERED: Levofloxacin 500 MG Tab ONE (14:47)
== END 2021-10-18 15:10 | disposition home or self-care (01) ==
LOC: DL.ED 10:08
DX: N30.01 Acute cystitis with hematuria (principal); F15.10 Other stimulant abuse, uncomplicated; E86.0 Dehydration; H10.9 Unspecified conjunctivitis; B96.89 Other specified bacterial agents as the cause of diseases classified elsewhere; F17.210 Nicotine dependence, cigarettes, uncomplicated; Z88.0 Allergy status to penicillin
CPT/HCPCS: 36415; 71045; 71260; 74177; 80053; 80305-QW; 80307; 81001; 82140; 83605; 83735; 84100; 84443; 85025; 85610; 86140; 87040; 87077; 87086; 87088; 87186; 96361; 96365; 99285-25; A9270-GY; J0696; J3490; J7030; Q9967

== ENCOUNTER 2022-01-16 08:48 | Emergency (ER) | payer SELFPAY ==
[2022-01-16] MEDS ORDERED: Midazolam 1 MG/ML 2 ML SDV IV ONE (08:49)
[2022-01-16] MEDS ORDERED: Propofol 200 MG/20 ML SDV IV ONE (08:49)
[2022-01-16] MEDS ORDERED: Rocuronium 100 MG/10 ML MDV IV ONE (08:49)
[2022-01-16] MEDS ORDERED: MVI, Adult with Vitamin K 10 ML, Folic Acid 1 MG, Thiamine 100 MG in Lactated Ringers 1... IV ONE ×4 (08:52)
[2022-01-16] MEDS ORDERED: Ondansetron 4 MG/2 ML SDV IVPUSH ONE (08:52)
[2022-01-16] MEDS ORDERED: Pantoprazole 40 MG in Sodium Chloride 0.9% 100 ML IV ONE (08:53)
[2022-01-16] MEDS ORDERED: Sodium Chloride 0.9% 10 ML Syringe FLUSH PRN (08:53)
[2022-01-16] MEDS ORDERED: Octreotide 100 MCG/ML SDV SUBCUT ONE (08:53)
[2022-01-16] MEDS ORDERED: Pantoprazole 80 MG in Sodium Chloride 0.9% 100 ML IV SCH (09:00)
[2022-01-16] MEDS ORDERED: Albuterol/Ipratropium 3.0-0.5 MG/3 ML Neb Soln NEB ONE (09:00)
[2022-01-16] MEDS: Octreotide 100 MCG in Sodium Chloride 0.9% 99 ML IV SCH ×2 (09:22→11:12)
[2022-01-16 09:35] LABS: PTT,PARTIAL THROMBOPLSTIN TIME 51.3 SEC (22.0-34.0)
[2022-01-16] MEDS ORDERED: Furosemide 40 MG/4 ML VIAL IVPUSH ONE (09:35)
[2022-01-16 09:37] LABS: ANION GAP 33.9 mEq/L (7-13); CHLORIDE,CL 103 mmol/L (98-107); SODIUM,NA 139 mmol/L (136-145)
[2022-01-16] MEDS ORDERED: 50% Dextrose in Water 50 ML Syringe IVPUSH ONE (09:40)
[2022-01-16 09:41] LABS: CORONAVIRUS COVID-19 NAA NEGATIVE (NEGATIVE)
[2022-01-16 09:41] LABS: ESTIMATED GFR 24 mL/min (>=60)
[2022-01-16] MEDS ORDERED: 50% Dextrose in Water 50 ML Syringe ONE (09:41)
[2022-01-16 10:01] LABS: AMPHETAMINES,URINE NEGATIVE (NEGATIVE); BARBITURATES,URINE NEGATIVE (NEGATIVE); BENZODIAZEPINE,URINE NEGATIVE (NEGATIVE); MDMA (ECSTASY), URINE NEGATIVE (NEGATIVE); METHADONE,URINE NEGATIVE (NEGATIVE); METHAMPHETAMINES,URINE POSITIVE (NEGATIVE); OPIATES,URINE NEGATIVE (NEGATIVE); OXYCODONE,URINE NEGATIVE (NEGATIVE); PHENCYCLIDINE,URINE NEGATIVE (NEGATIVE); TCA,URINE NEGATIVE (NEGATIVE)
[2022-01-16] MEDS ORDERED: Sodium Bicarbonate 8.4% 50 MEQ/50 ML Syringe IVPUSH ONE ×2 (10:06→10:43)
[2022-01-16 10:09] LABS: O2 DELIVERY DEVICE ROOM AIR
[2022-01-16 10:10] LABS: ALLEN TEST PERFORMED
[2022-01-16 10:11] LABS: BASE EXCESS ARTERIAL -30 mmol/L ((-2)-(+3)); BICARBONATE,ARTERIAL 3.5 mmol/L (22-26); O2 SATURATION ARTERIAL 80 % (95-100); PCO2 ARTERIAL 19 mmHg (35-45); PO2 ARTERIAL 75 mmHg (70-100)
[2022-01-16] MEDS ORDERED: Sodium Bicarbonate 100 MEQ in Dextrose 5% in Water 1,000 ML IV ONE ×2 (10:14)
[2022-01-16] MEDS ORDERED: Sodium Chloride 0.9% 100 ML ONE (10:20)
[2022-01-16] MEDS ORDERED: Midazolam 1 MG/ML 2 ML SDV ONE ×3 (10:21→10:28)
[2022-01-16] MEDS ORDERED: Propofol 200 MG/20 ML SDV IVPUSH ONE (10:25)
[2022-01-16] MEDS ORDERED: Midazolam 1 MG/ML 2 ML SDV IVPUSH ONE ×2 (10:25→11:04)
[2022-01-16] MEDS ORDERED: Rocuronium 100 MG/10 ML MDV IV SCH (11:00)
[2022-01-16] MEDS ORDERED: Piperacillin/Tazobactam 3.375 GM in Sodium Chloride 0.9% 100 ML IV ONE (11:10)
[2022-01-16] MEDS ORDERED: Octreotide 100 MCG in Sodium Chloride 0.9% 99 ML IV SCH (11:15)
[2022-01-16 12:06] VITALS: BP 95/47; PULSE 96
[2022-01-16 12:19] LABS: O2 DELIVERY DEVICE VENTILATOR
[2022-01-16 12:20] LABS: ALLEN TEST PERFORMED
[2022-01-16 12:21] LABS: BASE EXCESS ARTERIAL -26 mmol/L ((-2)-(+3)); BICARBONATE,ARTERIAL 7.2 mmol/L (22-26); O2 SATURATION ARTERIAL 77 % (95-100); PCO2 ARTERIAL 41 mmHg (35-45); PO2 ARTERIAL 72 mmHg (70-100)
== END 2022-01-16 12:16 ==
LOC: DL.ED 08:48
DX: J69.0 Pneumonitis due to inhalation of food and vomit (principal); J96.01 Acute respiratory failure with hypoxia; K92.0 Hematemesis; Z88.0 Allergy status to penicillin; Z20.822 Contact with and (suspected) exposure to COVID-19
CPT/HCPCS: 0240U; 36415; 36430; 36600; 71045; 80053; 80305; 80307; 82150; 82272; 82803; 82947; 83605; 83690; 83735; 83880; 84145; 84484; 85025; 85610; 85730; 86140; 86850; 86900; 86901; 86920; 86922; 93005; 93010; 94640; 96365; 96366; 96367; 96368; 96372; 96375; 96376; 99285; C9113; J1940; J2250; J2354; J2405; J2543; J2704; J3411; J3490; J7060; J7120; P9016; J7620-GY